=== PATIENT | female | born 1930 | race African-American/Black ===

== ENCOUNTER 2020-06-09 13:26 | Emergency (ER) | payer OTHER ==
[~2020-06-09] VITALS: Ht 162.6 cm; Wt 97.5 kg
--- NOTE | ~2020-06-09 | EMS ---
[address] [address] EMS Patient Care Report Name: MEDARDO MALONEY Room #: PRE M.R.#: [id number] Admission: Attend Phys: Discharge: Date of : [birth year] Report #: [id number] THIS REPORT FOR: //name// Report Transmitted: 06/09/2020 13:53 EMS Care Summary [place], [place]/[facility] Incident [id number] @ 06/09/2020 13:00 Incident Location [address] Patient MEDARDO MALONEY Female, 89 Years 1930 Patient Address Patient History Stroke/CVA,Novel Coronavirus (COVID-19), Patient Allergies No known allergies, Patient Medications Unknown, Chief Complaint FAILURE TO THRIVE Disposition Transported No Lights/[place] Dispatch Reason Sick Person Transported To [facility]UPON ARRIVAL PT FOUND IN WHEELCHAIR ALERT TO BASELINE. STAFF REPORT PT HAS BEEN EATING VERY MINIMALLY FOR 5 DAYS. PT WAS IN COVID RECOVERY WING AND HAS SINCE TESTED NEGATIVE. PT TEAM LIFTED TO COT AND VITALS OBTAINED. PT TRANSPORTED WITH NO CHANGE IN CONDITION. PT TEAM LIFTED TO BED AND HANDRAILS UP. REPORT GIVEN TO NURSE. [address] [address] EMS Patient Care Report Name: MEDARDO MALONEY Room #: PRE Naman#: [id number] Admission: Attend Phys: Discharge: Date of : [birth year] Report #: [id number] Initial Vitals @13:11P: 84,R: 14,BP: 140/86,SpO2: 97, @13:17P: 80,R: 16,BP: 149/85,Pain: 0/10,GCS: 14,SpO2: 94,Revised Trauma: 12, Assessments @13:10MENTAL:Person Oriented,Place Oriented,SKIN:HEENT:Head/Face: No Abnormalities,Eyes: No Abnormalities,Neck/Airway: No Abnormalities,LUNG SOUNDS:General: No Abnormalities,Left Upper: No Abnormalities,Right Upper: No Abnormalities,Left Lower: No Abnormalities,Right Lower: No Abnormalities,ABDOMEN:General: No Abnormalities,Left Upper: No Abnormalities,Right Upper: No Abnormalities,Left Lower: No Abnormalities,Right Lower: No Abnormalities,PELVIS//GI:No Abnormalities,EXTREMITIES:Right Arm: Weakness,Left Arm: Weakness,Left Leg: Weakness,Right Leg: Weakness,PULSE:NEURO:No Abnormalities,@13:19MENTAL:Person Oriented,Place Oriented,SKIN:HEENT:Head/Face: No Abnormalities,Eyes: No Abnormalities,Neck/Airway: No Abnormalities,LUNG SOUNDS:General: No Abnormalities,Left Upper: No Abnormalities,Right Upper: No Abnormalities,Left Lower: No Abnormalities,Right Lower: No Abnormalities,ABDOMEN:General: No Abnormalities,Left Upper: No Abnormalities,Right Upper: No Abnormalities,Left Lower: No Abnormalities,Right Lower: No Abnormalities,PELVIS//GI:No Abnormalities,EXTREMITIES:Right Leg: Weakness,Left Arm: Weakness,Left Leg: Weakness,Right Arm: Weakness,PULSE:NEURO:No Abnormalities, Impression Generalized Weakness Procedures @13:10ALS AssessmentResponse: UnchangedSucceeded Timeline 12:55,Call Received 12:55,Dispatch Notified 13:00,Dispatched 13:00,En Route 13:06,On Scene 13:10,At Patient 13:10,ALS Assessment,Response: UnchangedSucceeded, 13:11,BP: 140/86 M,PULSE: 84,RR: 14 R,SPO2: 97 Ox,ETCO2: ,BG: ,PAIN: ,GCS: , 13:17,BP: 149/85 M,PULSE: 80,RR: 16 R,SPO2: 94 Ox,ETCO2: ,BG: ,PAIN: 0,GCS: 14, 13:18,Depart Scene 13:20,At Destination 13:34,Call Closed Disclaimer v1.1 Copyright 2020 [facility] This EMS Care Summary contains data elements [place] [address] EMS Patient Care Report Name: MEDARDO MALONEY Room #: PRE M.R.#: [id number] Admission: Attend Phys: Discharge: Date of : [birth year] Report #: [id number] (which may be displayed differently). It is designed to provide pertinent information for the following purposes: continuity of care, clinical quality, and state data reporting. The complete legal record is available to ED staff and administrators of the receiving hospital in [facility]'s Patient Tracker. All data is provided "as is."
[2020-06-09 14:40] LABS: URINE BLOOD TRACE (Negative); URINE CLARITY SL CLOUDY; URINE COLOR YELLOW; URINE GLUCOSE-RANDOM* NEGATIVE (Negative); URINE KETONES 1+ (Negative); URINE LEUKOCYTES-REFLEX TRACE (Negative); URINE PROTEIN (DIPSTICK) TRACE (Negative); URINE SPECIFIC GRAVITY >= 1.030 (1.005-1.035)
[2020-06-09 14:42] LABS: URINE NITRITE-REFLEX POSITIVE (Negative)
[2020-06-09 14:43] LABS: ICTOTEST (BILI CONFIRMATORY) Negative (Negative); URINE BILIRUBIN NEGATIVE (Negative)
--- NOTE | 2020-06-09 14:43 | EKG ---
[facility] [place] [address] ELECTROCARDIOGRAM REPORT Name: MEDARDO MALONEY Room #: PRE [facility]#: [id number] Admission: Attend Phys: Discharge: Date of : [birth year] Report #: [id number] THIS REPORT FOR: cc: Lester Davis MD [facility] ~ THIS REPORT FOR: //name// [facility] ED Test Date: 2020-06-09 Test Time: 14:20:45 Pat Name: MEDARDO MALONEY Department: Room: Gender: F Civil Geotechnical Engineer: LULA : 1930 Requested By: Michelle Amanda Order Number: [id number] MD: Lester Davis Measurements Intervals [place] Rate: 72 P: 8 MT: 173 QRS: 22 QRSD: 98 T: 168 QT: 434 QTc: 476 Interpretive Statements Sinus rhythm LVH with secondary repolarization abnormality No previous ECG available for comparison Electronically Signed On 06-09-2020 14:43:09 HAND TIRE TRIMMER by Lester Davis [email or web address] <ELECTRONICALLY SIGNED> By: Lester Davis MD, FACC 06/09/20 1443 1420 1420 Lester Davis MD, FACC /EPI
[2020-06-09 14:52] LABS: SQUAMOUS 4-10 Moderate /LPF (0-3)
[2020-06-09 14:53] LABS: CASTS None Seen /LPF (None Seen); CRYSTALS None Seen /LPF (None Seen)
[2020-06-09 14:55] LABS: BACTERIA-REFLEX >30 Many /HPF (None Seen); URINE RBC 0-2 Rare /HPF (0-2); URINE WBC-REFLEX 0-5 Rare /HPF (0-5)
[2020-06-09 15:35] LABS: ABSOLUTE NEUTROPHILS 8.5 thou/uL (1.4-8.2); BASOPHILS 0.6 % (0.0-2.0); EOSINOPHILS 0.6 % (0.0-3.0); HEMATOCRIT 34.9 % (37.0-47.0); LYMPHOCYTES 14.5 % (24.0-44.0); MCH 25.1 pg (26.0-34.0); MCHC 31.6 g/dL (28.0-37.0); MCV 79.3 fL (80.0-100.0); MONOCYTES 6.2 % (1.0-8.0); POLYS 78.1 % (36.0-66.0); RDW 16.1 % (10.5-14.5); WBC 10.9 thou/uL (4.0-11.0)
[2020-06-09 15:43] LABS: ANION GAP 8 mmol/L (7-16); BUN 31 mg/dL (7-18); CALCIUM 9.8 mg/dL (8.5-10.1); CHLORIDE 109 mmol/L (98-107); CO2 29 mmol/L (21-32); CREATININE 0.9 mg/dL (0.6-1.0); GLUCOSE 156 mg/dL (74-106); POTASSIUM 4.3 mmol/L (3.5-5.1); SODIUM 146 mmol/L (136-145)
[2020-06-09 15:50] LABS: PROTIME 10.5 Seconds (9.3-11.4)
[2020-06-09 15:54] LABS: ALBUMIN 2.7 g/dL (3.4-5.0); LIPASE 146 U/L (73-393); MAGNESIUM 2.4 mg/dL (1.8-2.4); SGOT 29 U/L (15-37); SGPT 16 U/L (30-65); TOTAL BILIRUBIN 0.4 mg/dL (0.2-1.0); TOTAL PROTEIN 7.3 g/dL (6.4-8.2); TROPONIN-I <0.06 ng/mL (<0.06)
[2020-06-09 16:03] LABS: PLATELET COUNT 223 thou/uL (150-400)
[2020-06-09] MEDS ORDERED: KEFLEX500 M2 PO (16:42)
[2020-06-09 23:32] VITALS: BP 169/72
== END 2020-06-09 23:33 ==
LOC: ER 13:26
PROVIDERS: Physician Assistant
DX: E86.0 Dehydration (principal); D64.9 Anemia, unspecified; N39.0 Urinary tract infection, site not specified; N28.1 Cyst of kidney, acquired; I10 Essential (primary) hypertension; E11.9 Type 2 diabetes mellitus without complications; E78.5 Hyperlipidemia, unspecified; I25.10 Atherosclerotic heart disease of native coronary artery without angina pectoris; Z86.73 Personal history of transient ischemic attack (TIA), and cerebral infarction without residual deficits; Z79.899 Other long term (current) drug therapy

== ENCOUNTER 2020-06-12 23:49 | Inpatient (IN) | payer OTHER ==
[~2020-06-12] VITALS: Ht 160 cm; Wt 64.9 kg
[~2020-06-12 23:49] MED LIST: KEFLEX500 M2 PO
[2020-06-12 23:54] VITALS: BP 157/72
[2020-06-13] MEDS ORDERED: LOSARTAN POTASS50 MG (00:37)
[2020-06-13] MEDS ORDERED: NORVASC5 MG (00:38)
[2020-06-13] MEDS ORDERED: MEMANTINE HCL5 MG (00:38)
[2020-06-13] MEDS ORDERED: ASA5UEC (00:39)
[2020-06-13] MEDS ORDERED: ROCEPHIN 11 GM/1001 IV (00:42)
[2020-06-13] MEDS ORDERED: SENNA PLUS TAB1 EACH PO (00:42)
[2020-06-13] MEDS ORDERED: JUVEN PACKET1 EAC1 (00:42)
[2020-06-13] MEDS ORDERED: SUPER THERAVIT1 EACH PO (00:43)
[2020-06-13 00:46] LABS: BASOPHILS 0.3 % (0.0-2.0); HEMATOCRIT 32.7 % (37.0-47.0); HEMOGLOBIN 10.4 gm/dL (12.0-15.0); LYMPHOCYTES 15.6 % (24.0-44.0); MCH 25.1 pg (26.0-34.0); MCHC 31.7 g/dL (28.0-37.0); MCV 79.3 fL (80.0-100.0); MONOCYTES 9.8 % (1.0-8.0); PLATELET COUNT 159 thou/uL (150-400); POLYS 74.3 % (36.0-66.0); RBC 4.13 mil/uL (4.20-5.00); WBC 13.4 thou/uL (4.0-11.0)
[2020-06-13 00:48] LABS: CALCIUM 9.1 mg/dL (8.5-10.1); CREATININE 1.1 mg/dL (0.6-1.0); POTASSIUM 3.6 mmol/L (3.5-5.1)
[2020-06-13 00:54] LABS: URINE BILIRUBIN 1+ (Negative); URINE BLOOD NEGATIVE (Negative); URINE CLARITY SL CLOUDY; URINE COLOR YELLOW; URINE GLUCOSE-RANDOM* NEGATIVE (Negative); URINE KETONES TRACE (Negative); URINE LEUKOCYTES-REFLEX NEGATIVE (Negative); URINE NITRITE-REFLEX NEGATIVE (Negative); URINE PROTEIN (DIPSTICK) TRACE (Negative); URINE SPECIFIC GRAVITY 1.025 (1.005-1.035); URINE UROBILINOGEN 0.2 E.U./dl (0.2-1.0)
[2020-06-13 00:55] LABS: ALBUMIN 2.3 g/dL (3.4-5.0); TOTAL BILIRUBIN 0.5 mg/dL (0.2-1.0); TOTAL PROTEIN 6.8 g/dL (6.4-8.2)
[2020-06-13 20:29] VITALS: BP 184/71
--- NOTE | 2020-06-13 23:20 | NUR ---
PT ADMITTED FROM [facility] DUE TO FEVER, PT IN HOLDING IN ED FOR A DAY. PT IS ALERT AWAKE ANSWERS YES TO ALL QUESTIONS EVEN WHEN NOT AN APPROPRIATE ANSWER. PT HAS BLE CONTRACTED, BLE EDEMA, INCONTINENT OF B&B. MED HX CAD, OSTEOARTHRITIS, DEMENTIA, DEPRESSION, HTN, R SIDE HEMIPARESIS, CVA, DM, GLAUCOMA, COVID POSITIVE 04/22/20. PT HAS RAL[facility] [employer], IVF INTACT. BED ALARM ON. GRANDAUGHTER IS PTS DPOA.
[2020-06-14 03:26] VITALS: BP 172/83
[2020-06-14 05:44] LABS: CALCIUM 8.6 mg/dL (8.5-10.1); CREATININE 0.7 mg/dL (0.6-1.0); POTASSIUM 3.3 mmol/L (3.5-5.1)
[2020-06-14 07:53] VITALS: BP 177/84
[2020-06-14 15:35] VITALS: BP 178/87
[2020-06-14 19:20] VITALS: BP 153/87
--- NOTE | 2020-06-14 23:05 | NUR ---
PT RESTING IN BED ALERT AWAKE NON VERBAL, COMPLIANT WITH ADL CARES. REMAINS INCONTINENT. BLE CONTRACTED, R SIDED HEMIPARESIS. BED ALARM ON. MOUTH CARE PROVIDED.
[2020-06-15 03:13] VITALS: BP 155/94
[2020-06-15 07:26] VITALS: BP 152/79
[2020-06-15] MEDS ORDERED: ROCEPHIN 11 GM/1001 IM (09:16)
[2020-06-15 15:11] VITALS: BP 138/75
--- NOTE | 2020-06-15 19:07 | NUR ---
PATIENT ONLY OPEN EYES. NONE VERBLE, NOT EAT. NOT TOWARDS POC GOALS.
[2020-06-15 19:28] VITALS: BP 151/81
--- NOTE | 2020-06-15 23:24 | NUR ---
PT RESTING IN BED, ALERT, STARES AT CARVAJAL AND CEILIGS. MOUTH CARE PROVIDED. LHAND EDEMA. L SIDE HEMIPARESIS, GENERALIZED WEAKNESS, BLE CONTRACTED. BED ALARM ON.
[2020-06-16 03:46] VITALS: BP 159/81
[2020-06-16 08:12] VITALS: BP 146/74
--- NOTE | 2020-06-16 12:32 | NUR ---
Pt not eating or drinking adequately several days. If continued aggressive care, suggest start clinimix PPN at 80ml/hr.
--- NOTE | 2020-06-16 13:09 | NUR ---
INITIAL ASSESSMENT/DISCHARGE NOTE: Received consult. TERRELL reviewed chart and spoke with nursing and attending physician. Pt was admitted from [facility] due to fever/dementia. Pt placed in Enhanced Isolationd due to having positive COVID test. Pt had her first positive test at the shelter on 04/22. Pt has sinced moved out of the isolation unit. Pt with hx of dementia. TERRELL spoke with pt's granddtr, Jodee, via phone. Introduced role of TERRELL. Pt is a senior living care resident at the facility. Jodee confirms plan is for pt to return. TERRELL faxed clincial info and discharge orders/summary to [facility] and confirmed info was received with Opal, in admissions. Facility to obtain insurance auth for skilled level of care. Pt will return and be in the isolation unit. TERRELL arranged stretcher van transportation through [employer] for [id number]. Discussed with Director of Case Mgmt, who authorized transportation. TERRELL updated Opal and Paul at [facility]. TERRELL spoke with pt's granddtr via phone to provide update and notify of transportation time. Chart copy requested. Nursing provided with number to call report. No additional SW needs identified at this time, but is available to assist should needs arise.
--- NOTE | 2020-06-19 14:46 | NUR ---
Late Entry: SW received call from pt's granddtr, Kenan, on 06/17 requesting to speak with attending physician who discharged pt back to [facility] on 06/16. Kenan was concerned with pt's change in condition. SW notified attending physician and provided Kenan's contact info. SW received message from attending physician last evening, 06/18, requesting the facility to arrange hospice for pt at the facility. TERRELL spoke with Paul in admissions today to notify of request. Pt was seen in the ER at [facility] on 06/18 and discharged back to [facility] with plan for hospice. No additional SW needs identified at this time, but is available to assist should needs arise.
== END 2020-06-16 15:37 | DRG 871 ==
LOC: ER 23:49 → EROBS 06-13 02:28 → 3W 06-13 02:28
PROVIDERS: Emergency Medicine; Nurse Practitioner Family; ADMIT Internal Medicine; ATTEND Internal Medicine
DX: A41.9 Sepsis, unspecified organism (principal); U07.1 COVID-19; E43 Unspecified severe protein-calorie malnutrition; N17.0 Acute kidney failure with tubular necrosis; E87.0 Hyperosmolality and hypernatremia; R47.01 Aphasia; E86.0 Dehydration; F03.90 Unspecified dementia, unspecified severity, without behavioral disturbance, psychotic disturbance, mood disturbance, and anxiety; E78.5 Hyperlipidemia, unspecified; I10 Essential (primary) hypertension; I25.10 Atherosclerotic heart disease of native coronary artery without angina pectoris; F32.9 Major depressive disorder, single episode, unspecified; G47.00 Insomnia, unspecified; M19.90 Unspecified osteoarthritis, unspecified site; R50.9 Fever, unspecified; D50.9 Iron deficiency anemia, unspecified; E11.65 Type 2 diabetes mellitus with hyperglycemia; E88.09 Other disorders of plasma-protein metabolism, not elsewhere classified; Z86.73 Personal history of transient ischemic attack (TIA), and cerebral infarction without residual deficits; Z79.82 Long term (current) use of aspirin; Z79.899 Other long term (current) drug therapy; Z20.828 Contact with and (suspected) exposure to other viral communicable diseases
CPT/HCPCS: 10080